=== PATIENT | female | born 1985 | race Caucasian/White ===

== ENCOUNTER 2017-08-05 07:14 | Outpatient (CLI) | payer BC, OTHER | END 2017-08-05 07:15 | disposition home or self-care (01) | LOC: BICULT 07:14 | PROVIDERS: ATTEND Advanced Practice Midwife | DX: N60.01 Solitary cyst of right breast (principal) ==

== ENCOUNTER 2018-05-27 20:04 | Day surgery (SDC) | payer BC ==
[2018-05-27 20:27] VITALS: BP 110/64; TEMP 98.7; BMI 27.7
--- NOTE | 2018-05-27 22:54 | ULT ---
LIMITED OB ULTRASOUND 05/27/18 HISTORY: Vaginal bleeding. FINDINGS: There is a single intrauterine gestation in transverse lie with the head to the maternal left. Cardiac doppler demonstrates heart tones with a heart rate of 155 beats per minute. The placenta is located anteriorly. The exact location of the internal cervical os is difficult to de lineate but the placenta is borderline low lying to mildly low lying and followup evaluation is recom mended. There is a curvilinear hypoechoic area seen at the leading edge of the placenta but this appe ars confined to the placenta with additional small hypoechic areas and this may be related to fibrin deposition or possibly placental berry although this is more peripherally located than typically expec ralf. However, this is thought less likely to represent an area of hemorrhage, but followup evaluation is recommended. There is a normal amount of amniotic fluid with an amniotic fluid index measuring 17.4 cm. jazzy omical structures were not evaluated on this exam, and measurements were also not obtained. IMPRESSION: 1. Limited OB ultrasound with evidence of a single intrauterine gestation in transverse lie with heart tones documented. 2. Borderline low lying to low lying placenta. Followup evaluation is recommended. Cervical augustin th measures 3.9 cm. 3. Small curvilinear hypoechoic area seen at the leading edge of the placenta. This could potent ially represent a vascular structure, although no definitive flow on color flow evaluation. This is n ot thought to represent a hemorrhage, but followup evaluation is recommended. POS: [place]
--- NOTE | 2018-05-28 00:55 | PRG ---
DATE OF SERVICE: 05/27/2018 PRIMARY BILLING SPECIALIST: Ms. Grover Ventura, pediatric genetic counselor. CHIEF COMPLAINT: Vaginal bleeding. HISTORY OF PRESENT ILLNESS: The patient is a 33-year-old female with an intrauterine at 31 weeks and 5 days who is presenting with a single episode of vaginal bleeding that stained her underwear. The patient is unaware of any bleeding since that event. Patient denies intercourse or a ny heavy exertional activity. The patient does report that she was told that she had a low lying markos centa. She denies any complications with this . The patient denies fall, fever, headache, chest pain, shortness of breath, nausea, vomiting, diarrhea, constipation. Denies any new rashes, hi p problems, knee problems, muscle weakness. Denies change in discharge other than this bleeding, den ies urinary urgency or frequency. PAST MEDICAL HISTORY: Negative. PAST SURGICAL HISTORY: Noncontributory. SOCIAL HISTORY: Denies drug, alcohol or tobacco use. ALLERGIES: No known drug allergies. MEDICATIONS: vitamins. OB LABS: Blood type is A positive, antibody screen is negative. She is rubella immune, hepatitis B surface antigen is nonreactive, HIV is nonreactive. REVIEW OF SYSTEMS: Per HPI. PHYSICAL EXAMINATION: VITAL SIGNS: Blood pressure is 102/60, heart rate is 77, respiratory rate of 16, temperature 98.7. GENERAL: She appears to be in no acute distress. She is alert and oriented, cooperative and pleasan t to interact with. HEENT: Head is normocephalic, atraumatic. CHEST: Lungs are clear to auscultation bilaterally. HEART: Regular rate and rhythm. ABDOMEN: Gravid, soft, nontender. EXTREMITIES: Nontender, nonedematous. PELVIC: Vulva has some blood staining. Vagina is moist, with approximately 10 mL of dark blood that was removed with 2-3 procto swabs. Cervical os had some bloody mucus present. Cervix appeared clos ed and full and long. On digital exam, cervix is soft with exterior os fingertip. heart tracing performed for vaginal bleeding. Baseline is noted to be in the 130s with moderat e long-term variability, positive 15 x 15 accelerations, no decelerations. Tocometer shows no bleedi ng. Bedside ultrasound demonstrates an anterior placenta well away from the cervical os with no evid ence of large concealed abruption or a normal [place]. ASSESSMENT AND PLAN: The patient is a 33-year-old female with an intrauterine at 39 weeks and 5 days with a single episode of vaginal bleeding. It seems to be self-limited and there is no evidence of active bleeding at this time. The patient has been given reassurance. Ultrasound do es not show any signs of acute abruption. The patient is being discharged to home with a category 1 tracing and instructions to keep a documentation of her pad counts, and if she experiences sign ificant worsening in her bleeding to return. The patient has also been asked to call her pediatric genetic counselor mario monzon to give her an update and report.
== END 2018-05-27 22:11 | disposition home or self-care (01) ==
LOC: L&D/OP 20:04
PROVIDERS: ATTEND Obstetrics & Gynecology
DX: O46.93 Antepartum hemorrhage, unspecified, third trimester (principal); Z3A.39 39 weeks gestation of pregnancy
CPT/HCPCS: 76815; 99283

== ENCOUNTER 2018-05-29 08:15 | Observation (INO) | payer BC ==
[2018-05-29] MEDS: Lactated Ringer's 1,000 ML IV SCH ×2 (09:00→16:18)
--- NOTE | 2018-05-29 09:29 | PDOC.FPRHP ---
- History of Present Illness Chief Complaint: vaginal bleeding History of Present Illness: 33 yo at 32.0w by LMP/22.3w courtney presents for cc of vaginal bleeding. She had an episode 2 days ago and since that time had some light bleeding that she was tracking. She states this morning she was cooking breakfast and noticed a large gush of blood that was bright and brought her to the hospital. She denies any intercourse or other vigorous activity. She has otherwise been feeling well. - Allergies/Adverse Reactions Allergies Allergy/AdvReac Type Severity Reaction Status Date / Time No Known Allergies Allergy Verified 05/29/18 10:29 - Home Medications Medication Instructions Recorded Confirmed Type 21/Iron Fu/Folic Acid 1 tablet PO DAILY 05/27/18 05/29/18 History [ Complete [place]] - History PMHx: None PSHx: None FHx: Mom and dad with HTN, sister with ectopic and with spina bifida Social: Denies tobacco, alcohol, drug use - Review of Systems General: denies: fever/chills, fatigue Eyes: denies: eye pain, vision changes ENT: denies: nasal congestion, rhinorrhea Respiratory: denies: cough, congestion, shortness of breath Cardiovascular: denies: chest pain, palpitation Gastrointestinal: denies: nausea, vomiting, diarrhea, abdominal pain Genitourinary: reports: discharge (bleeding/mucus). denies: dysuria Skin: denies: rashes, lesions Musculoskeletal: denies: pain, tenderness Neurological: denies: syncope, weakness - Vital signs BP: 121.70 HR: 102 (60 on repeat) RR: 16 Tmax: 98.3 Wt: 80 kg - Physical Exam Constitutional: NAD, awake, alert and oriented HEENT: conjunctiva clear Neck: trachea midline Heart: RRR, normal S1/S2 Lungs: no respiratory distress Abdomen: soft, non-tender, other (gravid) Musculoskeletal: normal structure, normal tone Neurological: no focal deficit, normal sensation Skin: no rash/lesions, capillary refill <2 seconds Heme/Lymphatic: no unusual bruising or bleeding, other (vaginal bleeding) Psychiatric: normal mood and affect, good judgment and insight, intact recent and remote memory Additional comment: : blood with mucus at os, cervix closed/thick/high FMR H&P: Results - Labs Result Diagrams: 05/29/18 09:00 - Radiology Interpretation US - abdomen Status: image reviewed by me (Low lying placenta (1cm from os), BPP and formal read pending) FMR H&P: A/P - Problem List (1) Vaginal bleeding in Status: Acute Code(s): O46.90 - ANTEPARTUM HEMORRHAGE, UNSPECIFIED, UNSPECIFIED TRIMESTER (2) Third trimester at less than 36 weeks Status: Acute Code(s): Z34.93 - ENCNTR FOR SUPRVSN OF NORMAL PREG, UNSP, THIRD TRIMESTER - Plan 33 yo at 32.0w by LMP/22w sono here for vaginal bleeding 1. Vaginal bleeding - Low lying placenta on sono - No e/o abruption at this time - BPP/NST 05/12 - BMZ x2 and continuous FHT monitoring with bedrest 2. IUP at 32.0w - Steroids as above - Discussed possibility of transfer with [facility] should need for delivery arise as our NICU is full Dispo: Plan for ongoing monitoring on L&D for at least 24h Attending Addendum - Attending Addendum Date/Time: 06/03/18 0734 I personally evaluated the patient and discussed the management with Dr. Palomo I agree with the History, Examination, Assessment and Plan documented above with any addition or exceptions noted below.
[2018-05-29 09:34] LABS: Hemoglobin 13.1 g/dL (12.0-16.0); Mean Corpuscular HGB CONC 34.1 g/dL (32.0-36.0); Mean Corpuscular Volume 96.7 fL (78.0-98.0); Mean Platelet Volume 8.7 fL (7.4-10.4); Platelet Count 170 thou/uL (130-400); RBC Distribution Width 11.9 % (11.5-14.5); Red Blood Cell (RBC) Count 3.98 mill/uL (4.20-5.40); White Blood Cell (WBC) Count 7.1 thou/uL (4.8-10.8)
[2018-05-29] MEDS: Betamet Acet/Betamet Na Ph 30 MG/5 ML VIAL IM SCH (10:17)
[2018-05-29 10:28] VITALS: BMI 27.7
--- NOTE | 2018-05-29 10:58 | PDOC.EVN ---
Event Note - Event Note Event Note: SVE showed closed cervix with blood and mucus at os. FHT and maternal VSS. Will plan for BMZx2 and ongoing monitoring.
--- NOTE | 2018-05-29 11:46 | ULT ---
OB ULTRASOUND AND BIOPHYSICAL PROFILE: Date: 05/29/18 PROVIDED CLINICAL HISTORY: Vaginal bleeding. FINDINGS: A single, live intrauterine gestation is documented in variable presentation, with heart rate of 158 beats/minute. The placenta is anteriorly located. The inferior placental margin is less than 2.0 cm f rom the internal cervical os. Cervical length is about 4.0 cm. Amniotic fluid index is 14.0 cm. Biometry: BPD: 8.23 cm, 33 weeks/1 day HC: 29.8 cm, 33 weeks/0 days AC: 29.2 cm, 33 weeks/2 days FL: 6.1 cm, 31 weeks/5 days Estimated weight is 2044 gm, +/- 303 gm. Biophysical Profile: tone: 2/2 breathin/2 movement: 2/2 Amniotic fluid: 2/2 Total: 03/10 IMPRESSION: 1. Single, live intrauterine gestation in variable presentation. The inferior placental margin is sl ightly less than 2.0 cm from the internal cervical os. Follow-up is recommended. 2. Normal biophysical profile. POS: [facility]
[2018-05-29] MEDS ORDERED: Ondansetron PF 4 MG/2 ML Vial IVP PRN (12:16)
[2018-05-29] MEDS ORDERED: Acetaminophen 500 MG TAB PO PRN (12:16)
[2018-05-29 14:31] LABS: HBSAg Index 0.21 S/CO (0-0.99); Hep B Surf Ag Non-Reactive S/CO (NonReactive); Syphilis Antibody Nonreactive (Nonreactive); Syphilis Antibody Index 0.02 S/CO (<1.00 Non-Reactive)
--- NOTE | 2018-05-30 07:11 | PDOC.FM ---
- Subjective Subjective: Feeling well this morning. She has had no further bleeding since admission yesterday. She is feeling baby move regularly. She has been ambulating to the bathroom regularly without difficulty or further evidence of bleeding or discharge. - Objective MAR Reviewed: Yes Vital Signs & Weight: Vital Signs (12 hours) Temp Pulse Resp BP 05/30/18 04:11 98.4 F 80 14 109/57 L 05/30/18 01:00 98.3 F 77 14 94/51 L 05/30/18 00:51 98.3 F 77 14 94/51 L 05/29/18 20:52 93 18 111/59 L Weight Weight 80.286 kg Result Diagrams: 05/29/18 09:00 Phys Exam - Physical Examination Constitutional: NAD HEENT: PERRLA, moist MMs Neck: no JVD Respiratory: no wheezing, clear to auscultation bilateral Cardiovascular: RRR, no significant murmur Gastrointestinal: soft Musculoskeletal: no edema, pulses present Neurological: non-focal, moves all 4 limbs Psychiatric: normal affect, A&O x 3 Skin: no rash, normal turgor, cap refill <2 seconds Dx/Plan (1) Vaginal bleeding in Code(s): O46.90 - ANTEPARTUM HEMORRHAGE, UNSPECIFIED, UNSPECIFIED TRIMESTER Status: Acute (2) Third trimester at less than 36 weeks Code(s): Z34.93 - ENCNTR FOR SUPRVSN OF NORMAL PREG, UNSP, THIRD TRIMESTER Status: Acute - Plan Plan: 33 yo at 32.1w by LMP/22w sono here for vaginal bleeding 1. Vaginal bleeding - Resolved at this time - Low lying placenta on sono - No e/o abruption at this time - BPP/NST 05/12 - BMZ x2 (2nd dose this morning) and continuous FHT monitoring with bedrest - Will plan to transfer to Mailroom Assistant floor for monitoring for at least additional 24 hours - qshift NST 2. IUP at 32.1w - Steroids as above - Discussed possibility of transfer with [facility] should need for delivery arise as our NICU is full Dispo: Plan for ongoing monitoring for additional 24 hours and consider discharge tomorrow if no further bleeding
[2018-05-30] MEDS: Betamet Acet/Betamet Na Ph 30 MG/5 ML VIAL IM SCH (10:37)
[2018-05-30 11:42] LABS: Bilirubin Negative (Negative); Blood, Urine Large (Negative); Clarity CLEAR (Clear); Glucose, Urine (Dipstick) >=1000 mg/dL (Negative); Leukocyte Negative (Negative); Nitrite Negative (Negative); Protein, Urine (Dipstick) Negative (Neg-Trace); Specific Gravity, Urine 1.021 (1.002-1.036); Urobilinogen 0.2 mg/dL (0.2-1.0)
[2018-05-30 11:46] LABS: Bacteria/HPF None Seen HPF (None Seen); Hyaline Casts/LPF 0-3 HYALINE CAST LPF (0-3 Hyaline); Pathc Cast-AUWi Flag 0.14 (0-2.49); RBC/HPF 0-3 HPF (0-3); Squamous Epithelial 0-3 HPF (0-3); WBC/HPF 0-3 HPF (0-3)
[2018-05-30 11:59] LABS: Crystals/HPF None Seen HPF (Negative)
[2018-05-30] MEDS: Lactated Ringer's 1,000 ML IV SCH (13:56)
[2018-05-31 08:22] VITALS: BP 94/52; TEMP 98.1
--- NOTE | 2018-05-31 18:52 | DIS ---
DATE OF ADMISSION: 05/29/2018 DATE OF DISCHARGE: 05/31/2018 ADMITTING DIAGNOSES: 1. Intrauterine at 31 weeks. 2. Vaginal bleeding. DISCHARGE DIAGNOSES: 1. Intrauterine at 31 weeks. 2. Vaginal bleeding. PROCEDURE: Ultrasound. CONSULTATIONS: None. HOSPITAL COURSE: Patient is a 33-year-old G2, P1 female with an intrauterine at 32 weeks w ho represented to Labor and Delivery ER with acute vaginal bleeding. Her initial presentation two da ys prior was for some spotting that never persisted and was discharged home with precautions. She re turned with a much larger spontaneous bleed and associated with pain. Given the amount of bleeding t hat she had, a decision was made to keep her here for observation. KB was negative. Hemoglobin 13.1 , hematocrit 38.5, platelets 170,000. After the initial spontaneous bleed at home, she has not had a ny more bleeding or evidence of bleeding here in the hospital. Bedside ultrasound demonstrated a markos cental edge 1 cm from the cervical os did not show any large concealed bleeding. Today on hospital d ay #3, the patient is doing well, reports that she is comfortable going home. Blood pressure today is 94/52, temperature 98.1, pulse of 81, respiratory rate of 20, satting 98% on room air. Fetus has had a category 1 tracing throughout the entire stay. The patient will be discharged to home. She will be asked to follow up with her primary OB in the ne xt week. I have also asked her to consider establishing care with an [facility]SE [facility]TER in the event the patient needs acute surgical care during this . Her primary OB at this time is Grover Ventura.
== END 2018-05-31 10:30 | disposition home health service (06) ==
LOC: L&D/OP 08:15 → L&D 15:06 → 3SW 05-30 11:29
PROVIDERS: ADMIT Obstetrics & Gynecology; ATTEND Obstetrics & Gynecology
DX: O46.93 Antepartum hemorrhage, unspecified, third trimester (principal); Z3A.32 32 weeks gestation of pregnancy
CPT/HCPCS: 36415; 59025; 76805; 76819; 81003; 81015; 85027; 85460; 86780; 86850; 86900; 86901; 87340; 96360; 96361; 96372; 99285; G0378; J0702